=== PATIENT | female | born 2000 | race Caucasian/White ===

== ENCOUNTER 2021-10-23 18:09 | Emergency (ER) | payer SELFPAY ==
[~2021-10-23] VITALS: Ht 172.7 cm; Wt 149.7 kg
[2021-10-23] MEDS ORDERED: Morphine 4mg INJECTION 4 MG/ML INJ IV STA (18:30)
[2021-10-23] MEDS ORDERED: ONDANSETRON HCL INJ 2MG/ML 2ML 2 MG/ML VIAL IV STA ×2 (18:30→19:44)
[2021-10-23] MEDS ORDERED: SODIUM CHLORIDE 0.9% 1000ML 1,000 ML IV STA (18:30)
[2021-10-23 18:42] LABS: BASOPHILS # (AUTO) 0.1 (0.0-0.1); BASOPHILS % 0.7 % (0.0-1.0); EOSINOPHILS # (AUTO) 0.2 (0.0-0.4); HEMATOCRIT 40.5 % (34.2-44.1); HEMOGLOBIN 12.5 g/dL (12.0-16.0); LYMPHOCYTES # (AUTO) 2.3 (1.0-3.2); LYMPHOCYTES % 22.2 % (18.0-39.1); MEAN CORPUSCULAR HEMOGLOBIN 22.9 pg (28-32); MEAN CORPUSCULAR HGB CONC 30.9 g/dL (31-35); MEAN CORPUSCULAR VOLUME 74.2 fL (81-99); MONOCYTES # (AUTO) 0.6 (0.2-0.8); MONOCYTES % 5.9 % (4.4-11.3); NEUTROPHILS % 68.9 % (38.7-80.0); PLATELET COUNT 277 x10e3/uL (140-360); RED BLOOD COUNT 5.46 x10e6/uL (3.6-5.1)
[2021-10-23 19:00] LABS: CLARITY,URINE TURBID (CLEAR); COLOR,URINE RED (YELLOW); KETONES,URINE 1+ (NEGATIVE); LEUKOCYTE ESTERASE ,URINE TRACE (NEGATIVE); NITRITE,URINE NEGATIVE (NEGATIVE); PROTEIN,URINE DIPSTICK 2+ (NEGATIVE)
[2021-10-23 19:01] LABS: BACTERIA,URINE MODERATE /HPF; RBC,URINE 21-50 /HPF (0-5)
[2021-10-23 19:02] LABS: ALANINE AMINOTRANSFERASE 26 IU/L (0-55); ALBUMIN 3.9 g/dL (3.5-5.0); ALBUMIN/GLOBULIN RATIO 0.9 (0.8-2.0); ALKALINE PHOSPHATASE 106 IU/L (40-150); ANION GAP 18.4 mmol/L (8-16); BLOOD UREA NITROGEN 9 mg/dL (7-26); BUN/CREATININE RATIO 9 (6-25); CALCIUM 9.3 mg/dL (8.4-10.2); CARBON DIOXIDE 16 mmol/L (22-29); CHLORIDE 109 mmol/L (98-107); CREATININE, SERUM 0.96 mg/dL (0.57-1.11); GLUCOSE 163 mg/dL (74-118); LIPASE 12 U/L (8-78); POTASSIUM 3.4 mmol/L (3.5-5.1); SODIUM 140 mmol/L (136-145)
[2021-10-23] MEDS ORDERED: HYDROMORPHONE 1MG/1ML INJ IV STA (19:44)
[2021-10-23 21:27] VITALS: BP 140/80
== END 2021-10-23 21:30 | disposition home or self-care (01) ==
LOC: ER 18:22
DX: R10.30 Lower abdominal pain, unspecified (principal); N94.6 Dysmenorrhea, unspecified; N83.202 Unspecified ovarian cyst, left side; N83.201 Unspecified ovarian cyst, right side
CPT/HCPCS: 36415; 76830; 76856; 80053; 81001; 83690; 84702; 85025; 99284; J1170; J2270; J2405; J7030

== ENCOUNTER 2022-06-10 01:29 | Emergency (ER) | payer SELFPAY ==
[~2022-06-10] VITALS: Ht 172.7 cm; Wt 149.7 kg
== END 2022-06-10 04:00 | disposition home or self-care (01) ==
LOC: ER 01:38
DX: R09.89 Other specified symptoms and signs involving the circulatory and respiratory systems (principal); N80.9 Endometriosis, unspecified
CPT/HCPCS: 70490; 99282

== ENCOUNTER 2023-08-07 16:58 | Emergency (ER) | payer SELFPAY ==
[~2023-08-07] VITALS: Ht 172.7 cm; Wt 149.7 kg
[2023-08-07] MEDS ORDERED: SODIUM CHLORIDE 0.9% 1000ML 1,000 ML IV STA (17:02)
[2023-08-07 17:04] VITALS: O2SAT 100
[2023-08-07] MEDS ORDERED: ONDANSETRON HCL INJ 2MG/ML 2ML 2 MG/ML VIAL IV PRN (17:15)
[2023-08-07] MEDS ORDERED: ONDANSETRON ODT4 MG PO (17:39)
== END 2023-08-07 17:59 | disposition home or self-care (01) ==
LOC: ER 17:01
DX: R11.2 Nausea with vomiting, unspecified (principal); N80.9 Endometriosis, unspecified; R10.30 Lower abdominal pain, unspecified
CPT/HCPCS: 99282